=== PATIENT | female | born 1985 | race Caucasian/White ===

== ENCOUNTER 2017-01-03 14:39 | Emergency (ER) | payer MEDICAID ==
[~2017-01-03] VITALS: Wt 60.0 kg
[~2017-01-03 14:39] MED LIST: ALBU8.5H5 INH; PRED20TA PO
[2017-01-03] MEDS ORDERED: IBUP800T25 PO (16:14)
[2017-01-03] MEDS ORDERED: CYCL-319 PO (16:15)
--- NOTE | 2017-01-03 16:33 | ERD ---
ER Documentation Chief Complaint Date/Time DATE: 01/03/17 TIME: 16:10 Chief Complaint SWELLING/LUMP ON OUTER ASPECT OF RIGHT THIGH, NO INJURY HPI 31-year-old female presents emergency department for nontraumatic pain and swelling to the outer side of her right thigh for 2 weeks. Did she want to make sure that this is not a tumor or any life-threatening condition at this time. LMP: Stated it was a week ago. A0. Denies headache, dizziness, blurred vision, neck pain, shoulder pain, chest, back pain, abdominal pain, nausea, vomiting, constipation, diarrhea, urinary symptoms, loss of bowel bladder control, direct trauma, injury, falls, numbness or tingling sensation, fever, chills. Allergies to Cleocin. No past medical history. Surgical history of 2. Take any prescription medication at home. Occasional drinks alcoholic beverages. Denies smoking, use of illegal drugs. ROS All systems reviewed and are negative except as per history of present illness. Medications Home Meds Active Scripts Cyclobenzaprine Hcl* (Cyclobenzaprine Hcl*) 10 Mg Tablet, 10 MG PO Q8 Y for MUSCLE SPASMS, #15 TAB Prov:SHREYAS MOSES F 01/03/17 Ibuprofen* (Motrin*) 800 Mg Tab, 800 MG PO Q8 Y for PAIN AND OR ELEVATED TEMP, # 30 TAB Prov:SHREYAS MOSES F 01/03/17 Prednisone* (Prednisone*) 20 Mg Tab, 40 MG PO DAILY for 4 Days, TAB Prov:GIANA LERNER PA-C 12/11/14 Albuterol Sulfate* (Albuterol Sulfate* HFA) 8.5 Gm Hfa.aer.ad, 1-2 PUFF INH Q4 Y for SHORTNESS OF BREATH, #1 EA Prov:GIANA LERNER PA-C 12/11/14 Allergies Allergies: Coded Allergies: clindamycin (Unverified Allergy, Severe, 01/03/17) PT STATES SHE GETS A RASH. PMhx/Soc History of Surgery: Yes ( x 2) Anesthesia Reaction: No Hx Neurological Disorder: No Hx Respiratory Disorders: Yes (ASTHMA) Hx Cardiac Disorders: No Hx Psychiatric Problems: No Hx Miscellaneous Medical Probl: No Hx Alcohol Use: No Hx Substance Use: No Hx Tobacco Use: No Smoking Status: Never smoker Physical Exam Vitals Vital Signs Date Time Temp Pulse Resp B/P Pulse Ox O2 Delivery O2 Flow Rate FiO2 01/03/17 14:43 98.9 87 17 108/56 100 Physical Exam Const: [] Head: Atraumatic Eyes: Normal Conjunctiva ENT: Normal External Ears, Nose and Mouth. Neck: Full range of motion..~ No meningismus. Resp: Clear to auscultation bilaterally Cardio: Regular rate and rhythm, no murmurs Abd: Soft, non tender, non distended. Normal bowel sounds Skin: No petechiae or rashes Back: No midline or flank tenderness Ext: No cyanosis, or edema. Right lateral thigh has a swelling measuring approximately 3.5 cm x3.5 cm in diameter. No discoloration, obvious deformity. Right knee is unremarkable. No signs of trauma. Right ankle/foot are unremarkable. Bilateral hips are unremarkable. Left lower extremity is unremarkable. No neurovascular deficits. Ambulatory with steady gait. Neur: Awake and alert Psych: Normal Mood and Affect Procedures/MDM 31-year-old female presents emergency department for nontraumatic pain and swelling to the outer side of her right thigh for 2 weeks. Did she want to make sure that this is not a tumor or any life-threatening condition at this time. LMP: Stated it was a week ago. A0. Denies headache, dizziness, blurred vision, neck pain, shoulder pain, chest, back pain, abdominal pain, nausea, vomiting, constipation, diarrhea, urinary symptoms, loss of bowel bladder control, direct trauma, injury, falls, numbness or tingling sensation, fever, chills. Allergies to Cleocin. No past medical history. Surgical history of 2. Take any prescription medication at home. Occasional drinks alcoholic beverages. Denies smoking, use of illegal drugs. Physical exam: Right lateral thigh has a swelling measuring approximately 3.5 cm x3.5 cm in diameter. No discoloration, obvious deformity. Right knee is unremarkable. No signs of trauma. Right ankle/foot are unremarkable. Bilateral hips are unremarkable. Left lower extremity is unremarkable. No neurovascular deficits. Ambulatory with steady gait. Disease process was explained to the patient. I also explained to her that this is not an emergency and should be followed up by her primary care physician , and her primary care physician discretion if she will be referred to another specialist or we will do an ultrasound or any diagnostic tests. She verbalized understanding and agreed with the plan of care. She also stated that she will make sure to follow-up with her primary care physician in the next 24-48 hours. Differential diagnosis: Fracture versus contusion versus sprain versus cellulitis versus abscess Final diagnosis: Leg pain. Prescription: Flexeril. Motrin. Follow-up with primary care physician the next 24-48 hours. Come back in the emergency department for any new symptoms or any worsening symptoms. All questions and concerns were answered. Patient verbalized understanding and agreed with plan of care. Hemodynamically stable on discharge. Departure Diagnosis: Primary Impression: Leg pain Condition: Stable Patient Instructions: Possible Causes of Low Back or Leg Pain Additional Instructions: Follow-up with PCP in the next 24-48 hours. Patient stated that she has a scheduled to see her PCP 12. Come back here in the emergency department for any new symptoms or any worsening symptoms. SHREYAS MOSES Jan 03, 2017 16:33
== END 2017-01-03 16:37 | disposition home or self-care (01) ==
LOC: FTE 14:39
DX: M79.604 Pain in right leg (principal); J45.909 Unspecified asthma, uncomplicated
CPT/HCPCS: 99283